=== PATIENT | female | born 1990 | race African-American/Black ===

== ENCOUNTER 2024-12-07 16:28 | Emergency (ER) | payer MEDICARE, MEDICAID ==
[~2024-12-07] VITALS: Ht 175.3 cm; Wt 83.0 kg
[~2024-12-07 16:28] MED LIST: VIC
[2024-12-07 16:39] VITALS: TEMP 36.8; O2SAT 99
[2024-12-07 19:16] VITALS: PULSE 84; RESP 16
[2024-12-07] MEDS: MORPHINE SULFATE 4 MG/ML INJ (FOR IV/IM USE) IV ONE (19:16)
[2024-12-07] MEDS: ONDANSETRON HCL 4MG/2ML INJ IV ONE (19:17)
[2024-12-07] MEDS: SODIUM CHLORIDE 0.9% 1,000 ML IV ONE (19:17)
[2024-12-07 19:27] LABS: BASOPHILS % 0.6 % (0.0-2.0); EOSINOPHILS % 1.5 % (0.0-5.0); HEMATOCRIT. 41.4 % (36.0-48.0); HEMOGLOBIN. 13.1 g/dL (12.0-16.0); LYMPHOCYTES % 23.9 % (20.0-50.0); MEAN CORPUSCULAR HEMOGLOBIN 27.1 pg (28.0-32.0); MEAN CORPUSCULAR HGB CONC 31.6 g/dL (31.0-37.0); MEAN PLATELET VOLUME 8.6 fl (7.4-10.4); MONOCYTES % 7.3 % (2.0-8.0); NEUTROPHILS % 66.7 % (40.0-76.0); PLATELET 275 x1000/uL (130-400); RED BLOOD CELL COUNT 4.82 mill/uL (4.2-5.4); RED CELL DISTRIBUTION WIDTH 14.2 % (11.6-14.6)
[2024-12-07 19:40] LABS: CHLORIDE 105 mEq/L (98-107); POTASSIUM 3.4 mEq/L (3.5-5.1); SODIUM 138 mEq/L (136-145)
[2024-12-07 19:41] LABS: CARBON DIOXIDE 26 mEq/L (21-32)
[2024-12-07 19:46] LABS: CREATININE 0.8 mg/dL (0.6-1.0); GLUCOSE 113 mg/dL (70-105); UREA NITROGEN BLOOD 13 mg/dL (9-23)
[2024-12-07 19:50] LABS: HCG SCREEN NEGATIVE
[2024-12-07] MEDS ORDERED: BO1 TP (22:07)
[2024-12-07] MEDS ORDERED: IBUP-2029 MT (22:25)
[2024-12-07] MEDS ORDERED: TOPUD MT (22:25)
== END 2024-12-07 22:30 | disposition home or self-care (01) ==
LOC: ER 16:33
DX: T21.01XA Burn of unspecified degree of chest wall, initial encounter (principal); T79.9XXA Unspecified early complication of trauma, initial encounter; X08.8XXA Exposure to other specified smoke, fire and flames, initial encounter; Y93.89 Activity, other specified; Y92.89 Other specified places as the place of occurrence of the external cause; Y99.8 Other external cause status
CPT/HCPCS: 99284; 96374; 96361; 96375; 80048; 84703; 85025; 36415; J2405; J2270; J7030